=== PATIENT | female | born 1985 | race Caucasian/White ===

== ENCOUNTER 2018-11-15 15:53 | Emergency (ER) | payer OTHER ==
[~2018-11-15] VITALS: Ht 157.5 cm; Wt 62.1 kg
[~2018-11-15 15:53] MED LIST: PRENATAL VITAM1 EACH PO; ZANTAC150 MG PO
[2018-11-15] MEDS ORDERED: TAMSULOSIN HCL0.4 MG (17:50)
[2018-11-15] MEDS ORDERED: ASPIR-LOW81 MG PO (17:51)
== END 2018-11-15 18:32 | disposition home or self-care (01) ==
LOC: ED 15:53
DX: O99.89 Other specified diseases and conditions complicating pregnancy, childbirth and the puerperium (principal); R10.11 Right upper quadrant pain; Z79.899 Other long term (current) drug therapy; Z79.82 Long term (current) use of aspirin; Z3A.14 14 weeks gestation of pregnancy
CPT/HCPCS: 80053; 81001; 85025; 99284

== ENCOUNTER 2019-05-11 20:10 | Inpatient (IN) | payer OTHER ==
[~2019-05-11] VITALS: Ht 154.9 cm; Wt 70.0 kg
--- NOTE | ~2019-05-11 | OR ---
[facility] [address] [place], [place] [address] Draft DATE OF OPERATION: 05/11/2019 SURGEON: Celeste Henderson DO PREOPERATIVE DIAGNOSES: 1. Term intrauterine in the 39-week. 2. Labor. 3. Chronic hypertension. POSTOPERATIVE DIAGNOSES: 1. Term intrauterine in the 39-week. 2. Labor. 3. Chronic hypertension. OPERATION PERFORMED: Repeat low transverse delivery. FISHING VESSEL MATE: Otto Fajardo MD. ANESTHESIA: Spinal. ESTIMATED BLOOD LOSS: 600 mL. COMPLICATIONS: None. SPECIMENS: None. FINDINGS: Viable female. born in the direct OP position with Apgars of 9 and 9. Weight is pending at the time of dictation. Normal uterus, tubes, and ovaries; however, the peritoneum was scarred to the anterior portion of the uterus. INDICATIONS: Ms. Menjivar is a pleasant 34-year-old white female, who has a history of prior delivery and chronic hypertension in . She presented to the hospital with PATIENT NAME: SAGAR MENJIVAR OPERATIVE REPORT DATE OF : 87 REPORT #: [id number] PHYSICIAN: CELESTE HENDERSON DO PCP: CELESTE HENDERSON DO REPORT IS CONFIDENTIAL AND NOT TO BE RELEASED WITHOUT AUTHORIZATION [facility] [address] [place] [id number] Draft painful regular contractions and was determined to be in labor by the locum's provider and was admitted. The patient has a history of prior delivery and she was consented for repeat low transverse . Risks, benefits, and alternatives were discussed in detail with the patient. The patient understands and wished to proceed with procedure. TECHNIQUE: The patient was taken to the operating room, where a time-out was performed to confirm correct patient and correct procedure. Spinal anesthesia was adequately established. The patient was prepped and draped in the supine position with a bump under the right hip. Nettles catheter was inserted and SCDs were applied. The patient received Ancef 2 g preoperatively per SCIP protocol and no heparin was indicated. Once spinal was noted to be adequate, the prior Pfannenstiel scar was ellipsed and excised. The incision was then carried down to the fascia. The fascia was nicked in the midline and the fascial incision was extended bilaterally using Nolan scissors. Deb's was placed on the fascia and the fascia was elevated and the underlying rectus muscle was dissected sharply and bluntly. The rectus muscles were then divided in the midline and the peritoneum was entered. The peritoneum was noted to be quite thin, but densely scarred to the portion of the anterior wall of the uterus. These were carefully dissected both bluntly and sharply and a bladder flap was incidentally created and the bladder was pushed well down below the lower uterine segment. An Eduardo self retractor was placed after the fundal portion of the uterus was palpated and found to be clear of adhesions. The lower uterine segment was identified and hysterotomy was performed using surgical scalpel. Clear amniotic fluid was noted. Hysterotomy was extended bilaterally using blunt dissection. The surgeon's hand was then placed in the uterine cavity. The head elevated and noted to be in the OP position. The head was easily delivered with fundal pressure and no nuchal cord was identified. The baby delivered easily and was vigorous and cried at delivery. The cord was doubly clamped and cut and the handed to the waiting pediatric team for further care. The placenta was manually expressed intact with a centrally inserted 3-vessel cord. Small remnant of membranes was removed with ring forceps. Lap sponge was then used to clear any remaining products of conception and clot. The hysterotomy was then repaired using 0 Vicryl in a running locked manner. A small extension of the hysterotomy was noted at the left inferior lateral border and this was repaired using 0 Vicryl in a running locked stitch. A second imbricating suture of 0 Vicryl was applied in a vertical manner with good imbrication noted. Small amount of oozing was noted in the midline. This was made hemostatic with 2-0 Vicryl. The anterior portion of the uterine body was noted to have some raw surfaces from prior peritoneal adhesions. These were made hemostatic with Bovie electrocautery. Once the hemostasis was appreciated, the pelvis was irrigated and bilateral fallopian tubes and ovaries were noted to be normal. The Eduardo self retractor was removed and ACell sheet was applied to the lower uterine segment. The peritoneum was examined and at the apex of the peritoneal incision was a large pumping PATIENT NAME: SAGAR MENJIVAR OPERATIVE REPORT DATE OF : 87 REPORT #: [id number] PHYSICIAN: CELESTE HENDERSON DO PCP: CELESTE HENDERSON DO REPORT IS CONFIDENTIAL AND NOT TO BE RELEASED WITHOUT AUTHORIZATION [facility] [address] [place] [address] Draft vessel. This was made hemostatic with Bovie electrocautery and a stitch of 2-0 Vicryl. The peritoneum was then closed in a running manner using 2-0 Vicryl. Rectus was examined, found to be hemostatic. It was loosely approximated in the midline with 2 interrupted simple stitches of 0 Vicryl. The rectus was again irrigated, found to be hemostatic, and ACell powder was applied to the rectus sheath. Fascia was reapproximated using 0 Vicryl in a running nonlocked manner. Subcu was irrigated and made hemostatic with Bovie electrocautery. Subcu was reapproximated using 2-0 Vicryl in a running nonlocked manner. Skin was reapproximated using surgical bell with good hemostasis and cosmesis. The uterus was Crede'd for scant blood and the patient was noted to be 4 cm dilated at that point. The patient was taken to the PACU in good and stable condition with the baby. Sponge, needle, and instrument counts were correct x2 at the end of the procedure. Dr. Fajardo was present and participated in all portions of procedure. Celeste Henderson DO JDW/MODL /[id number] Copies: ~ PATIENT NAME: SAGAR MENJIVAR OPERATIVE REPORT DATE OF : 87 REPORT #: [id number] PHYSICIAN: CELESTE HENDERSON DO PCP: CELESTE HENDERSON DO REPORT IS CONFIDENTIAL AND NOT TO BE RELEASED WITHOUT AUTHORIZATION
[~2019-05-11 20:10] MED LIST changes: +ASPIR-LOW81 MG PO; +TAMSULOSIN HCL0.4 MG
--- NOTE | 2019-05-11 22:55 | NUR ---
05/11/19 9209 Latosha Hollins 0279: PT ARRIVES TO [facility] ROOM 104 FROM [facility] OR AWAKE ALERT AND ORIENTED. SHE IS DENIES ANY PAIN, DIFFICULTY BREATHING, OR SOB AT THIS TIME. SEBASTIEN IS WITH DAD AND RN'S AT THIS TIME.
--- NOTE | 2019-05-13 12:24 | PR ---
[facility] [address] [facility] [place], [place] [address] Signed PP Progress Notes Datetime Report Generated by CPN: 05/13/2019 12:24 SUBJECTIVE: [id number] Pain: Within normal limits Nausea/Vomiting: Denies Bowel Movement: No Vital Signs: [id number] Vital Signs: Reviewed; Within Normal Limits EXAM: [id number] Cardiovascular: Not Done Respiratory: Not Done Abdomen/Uterus: Abnormal Lochia: Normal Vulva/Perineum: Not Done Breasts: Not Done CVA Tenderness: Not Done Extremities: Normal Incision: Normal Progress: Normal Exam Comments: Abdomen with active BS. Fundus firm, NT @ U-1. IMPRESSION/PLAN/PROCEDURES: [id number] Impression: Normal progression Plan: Discharge Procedures: None Progress Notes: Doing well. She desires D/C home. Signing Physician: Madeline Vieira MD Copies: ~ *Electronically Signed* 05/13/19 1224 MADELINE VIEIRA MD PATIENT NAME: SAGAR REES PROGRESS NOTE DATE OF : 87 PHYSICIAN: MADELINE VIEIRA MD RPT #: [id number] REPORT IS CONFIDENTIAL AND NOT TO BE RELEASED WITHOUT AUTHORIZATION
== END 2019-05-13 14:35 | disposition home or self-care (01) | DRG 787 ==
LOC: FBCO 20:10 → FBC 20:50
PROVIDERS: ADMIT Obstetrics & Gynecology
PROC: 10D00Z1 Extraction of Products of Conception, Low, Open Approach (ICD-10-PCS; principal; 2019-05-11 21:33)
DX: O34.211 Maternal care for low transverse scar from previous cesarean delivery (principal); O10.92 Unspecified pre-existing hypertension complicating childbirth; N85.8 Other specified noninflammatory disorders of uterus; Z3A.39 39 weeks gestation of pregnancy; Z37.0 Single live birth; Z79.82 Long term (current) use of aspirin
CPT/HCPCS: 01961; 36415; 80053; 82565; 84450; 84520; 84550; 85025; G0463; J0690; J1650; J1885; J2274; J2300; J2405; J2590; J7121

== ENCOUNTER 2021-11-30 14:31 | Inpatient (IN) | payer BC ==
[~2021-11-30] VITALS: Ht 154.9 cm; Wt 71.2 kg
--- NOTE | 2021-12-01 18:29 | PR ---
[facility] [address] [facility] [place], [place] [address] Signed PP Progress Notes Datetime Report Generated by CPN: 12/01/2021 18:28 SUBJECTIVE: [id number] Pain: Within Normal Limits Nausea/Vomiting: Denies Flatus: Yes Bowel Movement: No Vital Signs: [id number] Vital Signs: Reviewed; Within Normal Limits EXAM: Ongoing Cardiovascular: Normal Respiratory: Normal Abdomen/Uterus: Normal Lochia: Normal Vulva/Perineum: Not Done Breasts: Not Done CVA Tenderness: Normal Extremities: Normal Incision: Normal Progress: Normal Exam Comments: Fundus firm U-2 nontender. Incision bandaged and dry IMPRESSION/PLAN/PROCEDURES: [id number] Impression: Normal Progression Plan: Continue Present Management Progress Notes: Pt seen and examined. Doing well. Ambulating, voiding, and tolerating full diet. Pain and lochia minimal. well. No fevers/chill. No concerns. Pt desires d/c home tomorrow. Reviewed postoperative course and all questions answered. Signing Physician: Celeste Henderson DO Copies: ~ *Electronically Signed* 12/01/21 182 CELESTE HENDERSON DO PATIENT NAME: SAGAR LOCO PROGRESS NOTE DATE OF : 87 PHYSICIAN: CELESTE HENDERSON DO RPT #: [id number] REPORT IS CONFIDENTIAL AND NOT TO BE RELEASED WITHOUT AUTHORIZATION
--- NOTE | 2021-12-02 09:46 | PR ---
[facility] [address] [facility] [place], [place] [address] Signed PP Progress Notes Datetime Report Generated by CPN: 12/02/2021 09:46 SUBJECTIVE: [id number] Pain: Within Normal Limits Nausea/Vomiting: Denies Flatus: Yes Bowel Movement: No Vital Signs: [id number] Vital Signs: Reviewed; Within Normal Limits EXAM: Ongoing Cardiovascular: Normal Respiratory: Normal Abdomen/Uterus: Normal Lochia: Normal Vulva/Perineum: Not Done Breasts: Not Done CVA Tenderness: Normal Extremities: Normal Incision: Normal Progress: Normal Exam Comments: Fundus firm U-2 nontender IMPRESSION/PLAN/PROCEDURES: [id number] Impression: Normal Progression Plan: Discharge Procedures: None Progress Notes: Pt seen and examined. Doing well. Ambulating, voiding, and tolerating full diet. Pain and lochia minimal. well. No fevers chills or other concerns. Desires d/c home. Reviewed d/c instructions in detail. Discussed bell and recommended removal in office tomorrow. No questions or concerns. Signing Physician: Celeste Henderson DO Copies: ~ *Electronically Signed* 12/02/21 0946 CELESTE HENDERSON DO PATIENT NAME: SAGAR LOCO PROGRESS NOTE DATE OF : 87 PHYSICIAN: CELESTE HENDERSON DO RPT #: [id number] REPORT IS CONFIDENTIAL AND NOT TO BE RELEASED WITHOUT AUTHORIZATION
--- NOTE | 2021-12-02 17:13 | PATH ---
[facility] [address] [place], [place] [address] Signed SPECIMEN(S): A FALLOPIAN TUBES, BILATERAL SPECIMEN SOURCE: A. FALLOPIAN TUBES, BILATERAL CLINICAL HISTORY: BTL. Repeat . FINAL PATHOLOGIC DIAGNOSIS: Bilateral fallopian tubes: - Two segments of benign oviduct. JVR:dinah:C2NR MICROSCOPIC EXAMINATION: Histologic sections of all submitted blocks are examined by light microscopy. These findings, together with the gross examination, support the pathologic diagnosis. GROSS DESCRIPTION: The specimen, labeled "JH, A," and designated on the requisition "bilat tubes," is received in formalin and consists of two jamison-white to purple, undesignated, slightly ragged fimbriated fallopian tube segments that have a pinpoint lumen. The first tube is arbitrarily inked blue, 9.7 cm long, 0.8 cm in diameter, and has multiple focal areas of delicate brown adhesions. Additional discrete mass/lesions are not grossly identified. The second tube is 9.6 cm long, 0.8 cm in diameter, and has multiple focal areas of delicate brown adhesions. Additional discrete mass/lesions are not grossly identified. Athletic Tur[employer] Worker sections, including the fallopian tube fimbria entirely, are submitted in two cassettes (A1-A-2). AI (under the direct supervision of a pathologist) The Gross Description was prepared using a voice recognition system. The report was reviewed for accuracy; however, sound-alike word errors, addition and/or deletions may occur. If there is any question about this report, please contact Client Services. PERFORMING LABORATORY: The technical component was performed by [facility], [address] [place] [address] (CLIA# [id number]). Professional interpretation was performed by [facility] [place], PATIENT NAME: SAGAR LOCO PATHOLOGY DATE OF : 87 REPORT #: [id number] PHYSICIAN: [facility] PCP: OTHER PCP REPORT IS CONFIDENTIAL AND NOT TO BE RELEASED WITHOUT AUTHORIZATION [facility] [address] [place], [place] [address] [address], [place] [address] (CLIA#: [id number]). Diagnostician: Wenceslao Salgado MD Pathologist Electronically Signed 12/02/2021 Copies: ~ PATIENT NAME: SAGAR LOCO PATHOLOGY DATE OF : 87 REPORT #: [id number] PHYSICIAN: [facility] PCP: OTHER PCP REPORT IS CONFIDENTIAL AND NOT TO BE RELEASED WITHOUT AUTHORIZATION
== END 2021-12-02 11:15 | disposition home or self-care (01) | DRG 785 ==
LOC: FBCO 14:31 → FBC 15:50
PROVIDERS: ADMIT Obstetrics & Gynecology; ATTEND Obstetrics & Gynecology
PROC: 0UB70ZZ Excision of Bilateral Fallopian Tubes, Open Approach (ICD-10-PCS; 2021-11-30)
PROC: 10D00Z1 Extraction of Products of Conception, Low, Open Approach (ICD-10-PCS; principal; 2021-11-30 20:09)
DX: O34.211 Maternal care for low transverse scar from previous cesarean delivery (principal); O13.4 Gestational [pregnancy-induced] hypertension without significant proteinuria, complicating childbirth; Z37.0 Single live birth; Z3A.38 38 weeks gestation of pregnancy; Z98.890 Other specified postprocedural states; Z79.82 Long term (current) use of aspirin; Z79.899 Other long term (current) drug therapy
CPT/HCPCS: 36415; 59025; 76942; 85027; 86850; 86900; 86901; 87502; A9270; C9803; G0463; J0690; J1100; J1650; J1885; J2001; J2274; J2300; J2370; J2405; J2590; J2795; J3010; J7121; U0003